=== PATIENT | male | born 1995 ===

== ENCOUNTER → 2019-02-23 | Outpatient (CLI) | payer OTHER ==
--- NOTE | 2019-02-23 17:21 | RADIOLOGY IMAGING REPORT ---
FACILITY: [facility] PATIENT NAME: Bob Deutsch : 1995 MR: [id number] V: [id number] EXAM DATE: ORDERING PHYSICIAN: CAYETANO ARREAGA TECHNOLOGIST: Location: [facility] - [place] Patient: Bob Deutsch : 1995 Visit/Account:[id number] Date of Sevice: 02/23/2019 Exam type: US ARTERIAL RENAL DUPX DOPPLER History: Essential hypertension Comparison: None. Findings: The right kidney measures 11.3 x 7.5 x 8.2 cm. There is no demonstration of hydronephrosis or right renal mass. Vascular evaluation: The superior pole arcuate artery: Peak systolic velocity 15.4 cm/s with a resistive index of 0.55 Superior pole segmental artery peak systolic velocity of 73.7 with resistive index of 0.63 Inferior Pole: Arcuate artery peak systolic velocity 16.9 cm/s and resistive index of 0.48 Inferior pole segmental artery peak systolic velocity of 78.6 centers per second and resistive index of 0.52 The peak systolic velocity in the right renal artery is 80.5 cm/s. Period the peak systolic velocity at the right renal artery anastomosis is 61.7 Right renal artery ratio at the kidney is 1.19 and at the aorta 0.99 The left kidney measures 15 x 7.9 x 7.4 cm. There is a 5 cm cyst projecting from the superior pole o f the left kidney. Period there is no evidence of hydronephrosis. Vascular evaluation: Superior Pole arcuate artery peak systolic velocity of 14.3 cm/s and resistive index of 0.45. Superior pole segmental artery peak systolic velocity 38.7 cm/s with a resistive index 0.60 Inferior Pole arcuate artery peak systolic velocity 21.5 cm/s and resistive index of 0.6 Interpole segmental artery peak systolic velocity 34.9 cm per second and resistive index of 0.51 Left renal artery peak systolic velocity is 73.6 cm/s. Peak systolic velocity at the left renal segundo ry anastomosis is 67.4 The left renal artery ratio at the kidney is 1.09 and at the aorta 0.90 Urinary bladder prevoid volume 363 mL and a post void residual of 11 mL. IMPRESSION: 1. No abnormal velocities are elevated resistive indices identified in either kidney Report Dictated By: Stefania Mars MD at 02/23/2019 4:51 PM Report E-Signed By: Stefania Mars MD at 02/23/2019 5:15 PM WSN:LISA
== END ==
LOC: RAD 11:06
PROVIDERS: ATTEND Family Medicine
DX: I10 Essential (primary) hypertension (principal)
CPT/HCPCS: 93975